=== PATIENT | male | born 1945 | race Caucasian/White ===

== ENCOUNTER 2017-11-06 11:39 | Observation (INO) ==
[2017-11-06] MEDS ORDERED: Aspirin 325 MG Tablet PO ONE (11:51)
[2017-11-06 12:03] LABS: Baso % (Auto) 0.5 % (0.0-2.0); Eos # (Auto) 0.3 th/mm3 (0.0-0.4); Eos % (Auto) 3.3 % (0.0-4.0); Hematocrit 41.4 % (39.0-51.0); Lymph # (Auto) 1.7 th/mm3 (1.0-4.8); Lymph % (Auto) 22.9 % (9.0-44.0); Mean Corpuscular HGB Conc 33.8 % (32.0-36.0); Mean Corpuscular Hemoglobin 32.3 pg (27.0-34.0); Mean Corpuscular Volume 95.4 fL (80.0-100.0); Mean Platelet Volume 8.7 fL (7.0-11.0); Mono # (Auto) 0.7 th/mm3 (0.0-0.9); Mono % (Auto) 9.6 % (0.0-8.0); Neut # (Auto) 4.8 th/mm3 (1.8-7.7); Neut % (Auto) 63.7 % (16.0-70.0); Platelet Count 143 th/mm3 (150-450); Red Blood Count 4.34 mil/mm3 (4.50-5.90); Red Cell Distribution Width 12.4 % (11.6-17.2); White Blood Count 7.6 th/mm3 (4.0-11.0)
[2017-11-06 12:11] LABS: Activated Partial Thrombo Time 24.3 sec (24.3-30.1); INR 1.1 Ratio
--- NOTE | 2017-11-06 12:21 | ED ---
HPI General Chief Complaint: Chest Pain Stated Complaint: Chest Pain Time Seen by Provider: 11/06/17 11:49 Source: patient Mode of arrival: EMS Limitations: no limitations History of Present Illness HPI narrative: 72-year-old male the presents to the ED via [facility] from the [place] for evaluation of chest pain. Per patient she developed chest pain will filling out paperwork at the [place]. Per patient he follows with the [facility] for his medical care. Per patient he has significant history of heart disease. Per patient he took 2 nitroglycerin of his own which seemed to improve his pain. Patient was given a third one when the back showed up which improved all of his symptoms. Patient was given aspirin as patient states that he takes blood thinner. Patient states that currently he is completely asymptomatic. Discomfort started 40 minutes before coming. Patient completely symptomatic at this time. He does have a history of diabetes, high blood pressure, high cholesterol. History of quadruple bypass and stent placed in 2006. Patient follows with cardiology in the [place] and per patient gets a stress test almost a year but has not had one this year. Per patient last time he had something like this was about 5 years ago he took his nitro and everything went away. She denies anything extraneous to come the pain. He denies any recent travel. He cannot really tell what blood thinner he takes. Denies any shortness of breath. No headache. No blurred vision. No syncope like symptoms. No nausea or vomiting. No abdominal pain. Complete Quality Measures for STEMI Alert Patients Related Data Home Medications Medication Instructions Recorded Confirmed amlodipine 5 mg PO DAILY 11/06/17 11/06/17 aspirin [Aspir-81] 81 mg PO DAILY 11/06/17 11/06/17 cholecalciferol (vitamin D3) 1,000 unit PO DAILY 11/06/17 11/06/17 clopidogrel 75 mg PO DAILY 11/06/17 11/06/17 fluoxetine 20 mg PO DAILY 11/06/17 11/06/17 insulin aspart (niacinamide) 30 unit SUB-Q TID 11/06/17 11/06/17 insulin glargine 55 unit SUB-Q HS 11/06/17 11/06/17 isosorbide mononitrate 30 mg PO DAILY 11/06/17 11/06/17 meclizine 12.5 mg PO BID 11/06/17 11/06/17 metoprolol tartrate 25 mg PO BID 11/06/17 11/06/17 quetiapine 25 mg PO BID 11/06/17 11/06/17 ranolazine 1,000 mg PO Q12H 11/06/17 11/06/17 rosuvastatin 40 mg PO DAILY 11/06/17 11/06/17 Allergies Allergy/AdvReac Type Severity Reaction Status Date / Time No Known Allergies Allergy Verified 11/06/17 11:52 Review of Systems ROS: all other systems reviewed are negative PENDING SALE TO [facility] Medical History Medical History Atrial fibrillation (Acute) Depression (Acute) Diabetes (Acute) High cholesterol (Acute) Hypertension (Acute) Myocardial infarction (Acute) Surgical History Surgical History History of cardiac cath (Acute) Hx of CABG (Acute) Status post carotid surgery (Acute) Social History Social History Substance History: No History of Abuse Second Hand Smoke Exposure: No Smoking Status: Former smoker How Often Do You Have a Drink Containing Alcohol: Monthly or less Recent Travel in [facility] within the Last 8 Weeks: No Recent Out of Country Travel within the Last 8 Weeks: No Immunization History Tetanus Immunization: <5 Years Hx Influenza Vaccine This Season: No Exam Narrative Exam Narrative: GENERAL: Well appearing SKIN: Focused skin assessment warm/dry. HEAD: Atraumatic. Normocephalic. EYES: Pupils equal and round. No scleral icterus. No injection or drainage. ENT: No nasal bleeding or discharge. Mucous membranes pink and moist. Tongue is midline. No uvula deviation. NECK: Trachea midline. No JVD. CARDIOVASCULAR: Regular rate and rhythm. No murmur appreciated. RESPIRATORY: No accessory muscle use. Clear to auscultation. Breath sounds equal bilaterally. GASTROINTESTINAL: Abdomen soft, non-tender, nondistended. Hepatic and splenic margins not palpable. MUSCULOSKELETAL: No obvious deformities. No clubbing. No cyanosis. No edema. Full range of motion of the upper and lower extremities bilaterally. 2+ pulses bilaterally. NEUROLOGICAL: Awake and alert. No obvious cranial nerve deficits. Motor grossly within normal limits. Normal speech. PSYCHIATRIC: Appropriate mood and affect; insight and judgment normal. Course Initial Documented Vital Signs Temperature 98.4 F 11/06/17 11:45 Pulse Rate 54 L 11/06/17 11:45 Respiratory Rate 17 11/06/17 11:45 Blood Pressure 159/78 H 11/06/17 11:45 Pulse Oximetry 95 11/06/17 11:45 Last Documented Vital Signs Temperature 98.4 F 11/06/17 11:45 Pulse Rate 54 L 11/06/17 11:45 Respiratory Rate 17 11/06/17 11:45 Blood Pressure 159/78 H 11/06/17 11:45 Pulse Oximetry 96 11/06/17 12:00 Medical Decision Making MDM Narrative Medical decision making narrative: 72-year-old male who presents to the ED for evaluation of chest pain. Patient was properly examined and was found to have signs and symptoms consistent with appears to be chest pain. Concerning for ACS. Labs and imaging order. Aspirin given. Labs and imaging did not show any sign of acute disease other than slightly elevated BS. Because the patient's history and normal stress test on anytime this year do recommend admission to chest pain center for further evaluation at this deafly concerning for cardiac as he does have multiple risk factors including cardiac disease in himself. This was discussed with my attending Dr. Herrera who is in agreement with admission plan. Patient will be admitted to the chest pain center by me. Patient and family agree with admission plan. Medical Screen Exam Complete: Yes Emergency Medical Condition: Yes Differential Diagnosis Differential Diagnosis: Chest pain versus atypical chest pain versus ACS versus N-STEMI Medical Records Medical records reviewed: Yes I reviewed the patient's medical records. Lab Data Lab results reviewed: Yes I reviewed the patient's lab results. Lab results narrative: Troponin and CKMB negative Result diagrams: 11/06/17 11:50 11/06/17 11:50 Lab Results 11/06/17 11/06/17 11/06/17 Range/Units 11:50 11:50 11:50 WBC 7.6 (4.0-11.0) th/mm3 RBC 4.34 L (4.50-5.90) mil/mm3 Hgb 14.0 (13.0-17.0) gm/dL Hct 41.4 (39.0-51.0) % MCV 95.4 (80.0-100.0) fL MCH 32.3 (27.0-34.0) pg MCHC 33.8 (32.0-36.0) % RDW 12.4 (11.6-17.2) % Plt Count 143 L (150-450) th/mm3 MPV 8.7 (7.0-11.0) fL Neut % (Auto) 63.7 (16.0-70.0) % Lymph % (Auto) 22.9 (9.0-44.0) % Rogers % (Auto) 9.6 H (0.0-8.0) % Eos % (Auto) 3.3 (0.0-4.0) % Baso % (Auto) 0.5 (0.0-2.0) % Neut # (Auto) 4.8 (1.8-7.7) th/mm3 Lymph # (Auto) 1.7 (1.0-4.8) th/mm3 Rogers # (Auto) 0.7 (0.0-0.9) th/mm3 Eos # (Auto) 0.3 (0.0-0.4) th/mm3 Baso # (Auto) 0.0 (0.0-0.2) th/mm3 WBC Differential . Differential Comment Auto diff final PT 11.0 (9.8-11.6) sec INR 1.1 Ratio APTT 24.3 (24.3-30.1) sec Sodium 137 (136-145) meq/L Potassium 4.4 (3.5-5.1) meq/L Chloride 101 (98-107) meq/L Carbon Dioxide 27.8 (21.0-32.0) meq/L Anion Gap 8 (5-15) meq/L BUN 25 H (7-18) mg/dL Creatinine 1.70 H (0.60-1.30) mg/dL Estimated GFR 40 L (>89) mL/min Random Glucose 327 H (74-106) mg/dL Calcium 8.4 L (8.5-10.1) mg/dL Total Bilirubin 0.3 (0.2-1.0) mg/dL AST 15 (15-37) U/L ALT 31 (12-78) U/L Alkaline Phosphatase 66 (45-117) U/L Total Creatine Kinase 67 (39-308) U/L Troponin I Less than 0.02 L (0.02-0.05) ng/mL B-Natriuretic Peptide (0-100) pg/mL Total Protein 6.8 (6.4-8.2) g/dL Albumin 3.2 L (3.4-5.0) g/dL Lipase 117 (73-393) U/L 11/06/17 Range/Units 11:50 WBC (4.0-11.0) th/mm3 RBC (4.50-5.90) mil/mm3 Hgb (13.0-17.0) gm/dL Hct (39.0-51.0) % MCV (80.0-100.0) fL MCH (27.0-34.0) pg MCHC (32.0-36.0) % RDW (11.6-17.2) % Plt Count (150-450) th/mm3 MPV (7.0-11.0) fL Neut % (Auto) (16.0-70.0) % Lymph % (Auto) (9.0-44.0) % Rogers % (Auto) (0.0-8.0) % Eos % (Auto) (0.0-4.0) % Baso % (Auto) (0.0-2.0) % Neut # (Auto) (1.8-7.7) th/mm3 Lymph # (Auto) (1.0-4.8) th/mm3 Rogers # (Auto) (0.0-0.9) th/mm3 Eos # (Auto) (0.0-0.4) th/mm3 Baso # (Auto) (0.0-0.2) th/mm3 WBC Differential Differential Comment PT (9.8-11.6) sec INR Ratio APTT (24.3-30.1) sec Sodium (136-145) meq/L Potassium (3.5-5.1) meq/L Chloride (98-107) meq/L Carbon Dioxide (21.0-32.0) meq/L Anion Gap (5-15) meq/L BUN (7-18) mg/dL Creatinine (0.60-1.30) mg/dL Estimated GFR (>89) mL/min Random Glucose (74-106) mg/dL Calcium (8.5-10.1) mg/dL Total Bilirubin (0.2-1.0) mg/dL AST (15-37) U/L ALT (12-78) U/L Alkaline Phosphatase (45-117) U/L Total Creatine Kinase (39-308) U/L Troponin I (0.02-0.05) ng/mL B-Natriuretic Peptide 67 (0-100) pg/mL Total Protein (6.4-8.2) g/dL Albumin (3.4-5.0) g/dL Lipase (73-393) U/L Imaging Data Radiologist's impression: Chest X-Ray 11/06/17 11:50 CONCLUSION: No acute pulmonary infiltrates. ECG Data Attestation: I personally reviewed and interpreted this ECG as follows: Interpretation: EKG shows sinus bradycardia what appears to be RBBB. No sign of acute ischemia. Ventricular rate of 54, VT interval of 200 ms. Discharge Plan Discharge Disposition Patient Disposition: 30 Still Patient Discharge Details Diagnosis: Chest pain Physicians Team ED Provider: Clay Herrera ED Midlevel Provider: Jared Vogt Primary Care Provider: UNKNOWN, Rxs /Orders / Referrals /Forms Prescriptions: No Action insulin glargine 100 unit/mL Solution 55 unit SUB-Q HS RF: 0 isosorbide mononitrate 30 mg Tablet Extended Release 24 Hr 30 mg PO DAILY RF: 0 meclizine 12.5 mg Tablet 12.5 mg PO BID RF: 0 clopidogrel 75 mg Tablet 75 mg PO DAILY RF: 0 amlodipine 5 mg Tablet 5 mg PO DAILY RF: 0 aspirin [Aspir-81] 81 mg Tablet,Delayed Release (Dr/Ec) 81 mg PO DAILY RF: 0 metoprolol tartrate 50 mg Tablet 25 mg PO BID RF: 0 fluoxetine 20 mg Capsule 20 mg PO DAILY RF: 0 rosuvastatin 40 mg Tablet 40 mg PO DAILY RF: 0 quetiapine 50 mg Tablet 25 mg PO BID RF: 0 cholecalciferol (vitamin D3) 1,000 unit Tablet 1,000 unit PO DAILY RF: 0 ranolazine 1,000 mg Tablet Extended Release 12 Hr 1,000 mg PO Q12H RF: 0 insulin aspart (niacinamide) 100 unit/mL Solution 30 unit SUB-Q TID RF: 0 Discharge Instructions Patient Printed Instructions: Chest Pain (ED) Status ED Status: With Doctor
[2017-11-06 12:27] LABS: Alanine Aminotransferase 31 U/L (12-78); Albumin 3.2 g/dL (3.4-5.0); Anion Gap 8 meq/L (5-15); Aspartate Aminotransferase 15 U/L (15-37); Blood Urea Nitrogen 25 mg/dL (7-18); Calcium 8.4 mg/dL (8.5-10.1); Carbon Dioxide 27.8 meq/L (21.0-32.0); Chloride 101 meq/L (98-107); Glomerular Filtration Rate 40 mL/min (>89); Glucose,Random 327 mg/dL (74-106); Lipase 117 U/L (73-393); Potassium 4.4 meq/L (3.5-5.1); Sodium 137 meq/L (136-145)
[2017-11-06 12:31] LABS: Alkaline Phosphatase 66 U/L (45-117); Total Protein 6.8 g/dL (6.4-8.2)
[2017-11-06 12:32] LABS: Creatine Kinase 67 U/L (39-308)
--- NOTE | 2017-11-06 13:13 | XR ---
EXAM DATE: 11/06/2017 12:51 PM EDT AGE/SEX: 72 years / Male INDICATIONS: Chest pain. CLINICAL DATA: This is the patient's initial encounter. Patient reports that signs and symptoms have been present for 1 day and indicates a pain score of 6/10. MEDICAL/SURGICAL HISTORY: Myocardial infarction. CABG. COMPARISON: No prior exams available for comparison. FINDINGS: A single AP view of the chest demonstrates the lungs to be symmetrically aerated without evidence of mass, infiltrate or effusion. The heart size is upper limits of normal. There is evidence of previou s cardiothoracic surgery.. Osseous structures are intact. CONCLUSION: No acute pulmonary infiltrates. Electronically signed by: Hoang Daniels MD 11/06/2017 1:11 PM EDT
[2017-11-06] MEDS ORDERED: Acetaminophen 500 MG Tablet PO PRN (13:41)
--- NOTE | 2017-11-06 15:33 | P.HPCA ---
History of Present Illness Primary Care Physician: [facility] Chief Complaint: Chest pain History of Present Illness: 72 year old male with history of CAD, CABGx4 (1998), cardiac stent x1 (2006), type II diabetes, and hypertension presents to ER for further evaluation of nonexertional chest pain. Onset 1100. Location substernal. Characterized as "a fist inside my chest, deep inside." Radiation to right shoulder blade and mid back. 8/10 in severity. Associated symptoms include nausea and blurred vision. Denied dyspnea or diaphoresis. No precipitating factors. Took Nitro SL x1 which eased the pain somewhat, took an additional Nitro SL 5 minutes later. Pain decreased to 3/10. He and his were at the [facility] filling out paperwork, therefore notified staff of chest pain. EMS called. Reports complete relief after Nitro spray given en route by EMS within a couple of minutes. Duration one hour. Remains chest pain free, but also reports "a few ticks of intermittent pain." Denies frequently requiring use of Nitro and tablets are not . Endorses similar pain prior to previous cardiac events. Started on Imdur s/p CABG in 1998 and Ranexa in 2006. Reports Ranexa started for small vessel disease, denying chest discomfort as reason for Ranexa. No recent illness, fever, or injury. Reports frequent falls and earlier today seen neurologist. States "loosing my footing" and also becomes dizzy. Endorses difficulty controlling blood sugars for 7-8 months which he related to track manager stopping metformin and switching insulin around. Reports sugars used to be between 100-130, until recent change now reports sugars well above 200. Past cardiac testing 1998 CABGx4 2007 cardiac stent placed in "one of my bypasses." [employer] with [place] [facility]. Last seen vascular ultrasound technician April 2017. Last nuclear stress testing April 2016 reported to be normal. No recent echocardiogram. Denies personal history of congestive heart failure, however states "the right side of my heart during first MD because I waited to long to be seen." - Diagnosis (1) Chest pain of uncertain etiology (2) History of coronary artery disease (3) Type 2 diabetes mellitus (4) H/O: hypertension (5) H/O sleep apnea Review of Systems All other systems reviewed negative except as stated in HPI [facility] - History History Provided By: Patient - Medical History Medical History: Medical History (Last Updated 11/06/17 @ 15:26 by ETHEL Jarvis) CAD (coronary artery disease) Depression Diabetes High cholesterol Hypertension Myocardial infarction Sleep apnea - Surgical History Surgical History: Surgical History (Last Updated 11/06/17 @ 15:28 by ETHEL Jarvis) History of cardiac cath History of left hip replacement Hx of CABG Status post carotid surgery - Family History Family History: Family History (Last Updated 11/06/17 @ 15:50 by ETHEL Jarvis) Father FH: throat cancer Mother CHF (congestive heart failure) Hx of CABG - Tobacco History Second Hand Smoke Exposure: No Smoking Status: Former smoker - Alcohol History How Often Do You Have a Drink Containing Alcohol: Monthly or less - Substance Use History Substance History: No History of Abuse - Travel History Recent Travel in the [place] Within the Last 8 Weeks: No Recent Travel Out of the Country Within the Last 8 Weeks: No - Immunization History Tetanus Immunization: <5 Years Hx Influenza Vaccine This Season: No Medications and Allergies Active Medications: Active Medications Acetaminophen (Tylenol) 500 mg PO Q4H PRN PRN Reason: HEADACHE Nitroglycerin (Nitrostat Sl) 0.4 mg SL Q5M PRN PRN Reason: CHEST PAIN Sodium Chloride (Ns Flush) 2 ml IV.FLUSH UNSCH PRN PRN Reason: FLUSH AFTER USING IV ACCESS Sodium Chloride (Ns Flush) 2 ml IV.FLUSH BID SANDRA Allergies Allergy/AdvReac Type Severity Reaction Status Date / Time No Known Allergies Allergy Verified 11/06/17 11:52 Home Medications Medication Instructions Recorded Confirmed Type amlodipine 5 mg PO DAILY 11/06/17 11/06/17 History aspirin [Aspir-81] 81 mg PO DAILY 11/06/17 11/06/17 History cholecalciferol (vitamin D3) 1,000 unit PO DAILY 11/06/17 11/06/17 History clopidogrel 75 mg PO DAILY 11/06/17 11/06/17 History fluoxetine 20 mg PO DAILY 11/06/17 11/06/17 History insulin aspart (niacinamide) 30 unit SUB-Q TID 11/06/17 11/06/17 History insulin glargine 55 unit SUB-Q HS 11/06/17 11/06/17 History isosorbide mononitrate 30 mg PO DAILY 11/06/17 11/06/17 History meclizine 12.5 mg PO BID 11/06/17 11/06/17 History metoprolol tartrate 25 mg PO BID 11/06/17 11/06/17 History quetiapine 25 mg PO BID 11/06/17 11/06/17 History ranolazine 1,000 mg PO Q12H 11/06/17 11/06/17 History rosuvastatin 40 mg PO DAILY 11/06/17 11/06/17 History Exam Vital signs: Vital Signs 11/06/17 11:45 11/06/17 11:52 11/06/17 12:00 Temperature 98.4 F Pulse Rate 54 L Respiratory Rate 17 Blood Pressure 159/78 H Pulse Oximetry 95 95 96 11/06/17 13:41 Temperature Pulse Rate 52 L Respiratory Rate 17 Blood Pressure 151/76 H Pulse Oximetry 97 Intake & Output 11/05/17 11/06/17 11/06/17 18:59 06:59 18:59 Weight 100 kg Narrative: GENERAL: Alert WN, WD, NAD, pleasant, obese, male HEAD: NC, AT EYES: Sclera clear, conjunctiva without injection, pupils equal and round ENT: Mucous membranes pink and moist NECK: Supple, no masses, trachea midline CV: Regular bradycardic rhythm, without murmur, rub, gallop, no JVD, S1-S2 no S3 -S4. No carotid bruits. Chest wall nontender to palpation. RESP: Clear lungs throughout bilateral, no crackles, wheeze, rhonchi, symmetrical chest rise, nonlabored, able to speak in full sentences ABD: Soft, NT, ND, no masses, positive bowel tones, large, round obese abdomen EXT: Pulses +2x4, right lower extremity +2 pitting edema, left pedal/ankle +2 edema MS: Normal tone x4 extremities, nontender, no obvious deformities, full range of motion NEURO: CN II through CN XII grossly intact, motor strength 5/5 PSYCH: A+O x3, flat affect, appropriate speech, mood, insight and judgment SKIN: Normal turgor, normal texture, no lesions, no rashes, brisk cap refill, decreased lower extremity hair distribution, midline chest surgical scar, left- sided neck surgical scar Results 11/06/17 11:50 11/06/17 11:50 Cardiac Enzymes 11/06/17 11/06/17 Range/Units 11:50 11:50 AST 15 (15-37) U/L Troponin I Less than 0.02 L (0.02-0.05) ng/mL B-Natriuretic Peptide 67 (0-100) pg/mL Coagulation 11/06/17 11/06/17 Range/Units 11:50 11:50 PT 11.0 (9.8-11.6) sec APTT 24.3 (24.3-30.1) sec B-Natriuretic Peptide 67 (0-100) pg/mL CBC 11/06/17 Range/Units 11:50 WBC 7.6 (4.0-11.0) th/mm3 RBC 4.34 L (4.50-5.90) mil/mm3 Hgb 14.0 (13.0-17.0) gm/dL Hct 41.4 (39.0-51.0) % Plt Count 143 L (150-450) th/mm3 Neut # (Auto) 4.8 (1.8-7.7) th/mm3 Lymph # (Auto) 1.7 (1.0-4.8) th/mm3 Hamblen # (Auto) 0.7 (0.0-0.9) th/mm3 Eos # (Auto) 0.3 (0.0-0.4) th/mm3 Baso # (Auto) 0.0 (0.0-0.2) th/mm3 Comprehensive Metabolic Panel 11/06/17 Range/Units 11:50 Sodium 137 (136-145) meq/L Potassium 4.4 (3.5-5.1) meq/L Chloride 101 (98-107) meq/L Carbon Dioxide 27.8 (21.0-32.0) meq/L BUN 25 H (7-18) mg/dL Creatinine 1.70 H (0.60-1.30) mg/dL Calcium 8.4 L (8.5-10.1) mg/dL AST 15 (15-37) U/L ALT 31 (12-78) U/L Alkaline Phosphatase 66 (45-117) U/L Total Protein 6.8 (6.4-8.2) g/dL Albumin 3.2 L (3.4-5.0) g/dL Intake and Output 11/05/17 11/06/1718 22:59 06:59 14:59 Other: Weight 100 kg Patient Weight 11/07/17 06:59 Weight 100 kg EKG interpretations - EKG EKG results cardiology: sinus rhythm (NSB, nonspecific st t changes) Caprini VTE Risk Assessment Caprini VTE Risk Assessment: Moderate/High Risk (score >= 2) Caprini Risk Assessment Model: Point Value = 1 Point Value = 2 Point Value = 3 Point Value = 5 Age 41-60 Minor surgery BMI > 25 kg/m2 Swollen legs Varicose veins or History of unexplained or recurrent spontaneous Oral contraceptives or hormone replacement Sepsis (< 1 month) Serious lung disease, including pneumonia (< 1 month) Abnormal pulmonary function Acute myocardial infarction Congestive heart failure (< 1 month) History of inflammatory bowel disease Medical patient at bed rest Age 61-74 Arthroscopic surgery Major open surgery (> 45 min) Laparoscopic surgery (> 45 min) Malignancy Confined to bed (> 72 hours) Immobilizing plaster cast Central venous access Age >= 75 History of VTE Family history of VTE Factor V Leiden Prothrombin [id number] Lupus anticoagulant Anticardiolipin antibodies Elevated serum homocysteine Heparin-induced thrombocytopenia Other congenital or acquired thrombophilia Stroke (< 1 month) Elective arthroplasty Hip, pelvis, or leg fracture Acute spinal cord injury (< 1 month) Prophylaxis Regimen: Total Risk Factor Score Risk Level Prophylaxis Regimen 0-1 Low Early ambulation 2 Moderate Order ONE of the following: *Sequential Compression Device (SCD) *Heparin 5000 units SQ BID 3-4 Higher Order ONE of the following medications: *Heparin 5000 units SQ TID *Enoxaparin/Lovenox 40 mg SQ daily (WT < 150 kg, CrCl > 30 mL/min) *Enoxaparin/Lovenox 30 mg SQ daily (WT < 150 kg, CrCl > 10-29 mL/min) *Enoxaparin/Lovenox 30 mg SQ BID (WT < 150 kg, CrCl > 30 mL/min) AND/OR *Sequential Compression Device (SCD) 5 or more Highest Order ONE of the following medications: *Heparin 5000 units SQ TID (Preferred with Epidurals) *Enoxaparin/Lovenox 40 mg SQ daily (WT < 150 kg, CrCl > 30 mL/min) *Enoxaparin/Lovenox 30 mg SQ daily (WT < 150 kg, CrCl > 10-29 mL/min) *Enoxaparin/Lovenox 30 mg SQ BID (WT < 150 kg, CrCl > 30 mL/min) AND *Sequential Compression Device (SCD) Assessment and Plan - Assessment (1) Chest pain of uncertain etiology Code(s): R07.89 - Other chest pain Status: Acute Plan: Admitted to chest pain center. Rule out ACS with 3 sets of EKGs and cardiac enzymes. Seen and evaluated by Dr. Terrance Shearer. If ACS ruled out overnight plans to proceed with Lexiscan in a.m. Patient and agreeable to plan of care. (2) History of coronary artery disease Code(s): Z86.79 - Personal history of other diseases of the circulatory system Status: Chronic Plan: Continue aspirin, Plavix, isosorbide, metoprolol, Ranexa, and rosuvastatin. Encouraged him to discuss with his vascular ultrasound technician continuing use of Plavix, as he reports being on for 10 years. (3) Type 2 diabetes mellitus Code(s): E11.9 - Type 2 diabetes mellitus without complications Status: Chronic Plan: SSI moderate dose coverage. Discussed glucose found to be 327 on current lab work. Reinforced importance of tight blood sugar control. Encouraged discussing with track manager his concern poorly controlled sugars since insulin change and stopping metformin. (4) H/O: hypertension Code(s): Z86.79 - Personal history of other diseases of the circulatory system Status: Chronic Plan: Continue amlodipine. (5) H/O sleep apnea Code(s): Z86.69 - Personal history of other diseases of the nervous system and sense organs Status: Chronic Plan: CPAP ordered nightly. (3) Type 2 diabetes mellitus Qualifiers: Diabetes mellitus missile inspector preflight insulin use: unspecified missile inspector preflight insulin use status Diabetes mellitus complication status: with unspecified complications Qualified Code(s): E11.8 - Type 2 diabetes mellitus with unspecified complications
[2017-11-06] MEDS ORDERED: Dextrose 50% in Water 50 ML Vial IV.PUSH PRN (15:45)
--- NOTE | 2017-11-06 16:33 | ECG ---
Date Performed: 11/06/2017 Time Performed: 11:47:48 PTAGE: 72 years EKG: SINUS BRADYCARDIA RIGHT BUNDLE BRANCH BLOCK Nonspecific T wave changes. ABNORMAL ECG NO PREVIOUS TRACING DOCTOR: Terrance Shearer Interpretating Date/Time 11/06/2017 16:33:05
[2017-11-06 16:52] LABS: Creatine Kinase 64 U/L (39-308)
[2017-11-06] MEDS ORDERED: INSULIN ASPART 30 UNIT SQ SCH (18:00)
[2017-11-06] MEDS: Insulin NovoLOG Aspart Correctional Sugar Inj SQ SCH ×2 (18:49→21:11)
[2017-11-06 19:06] LABS: Creatine Kinase 63 U/L (39-308)
[2017-11-06] MEDS: Metoprolol Tartrate 25 MG Tablet PO SCH (21:11)
[2017-11-06] MEDS: Ranolazine 500 MG 12HR ER Tablet PO SCH (22:16)
[2017-11-07 07:41] VITALS: RESP 18
[2017-11-07] MEDS ORDERED: Isosorbide Mononitrate 30 MG ER 24HR Tablet (Imdur) PO SCH (09:00)
[2017-11-07] MEDS ORDERED: amLODIPine 5 MG Tablet PO SCH (09:00)
[2017-11-07] MEDS ORDERED: FLUoxetine 20 MG Capsule PO SCH (09:00)
[2017-11-07] MEDS: Insulin NovoLOG Aspart Correctional Sugar Inj SQ SCH ×2 (09:21→11:35)
[2017-11-07] MEDS ORDERED: Regadenoson Inj 0.4 MG/5 ML Syringe IV.PUSH ONE (09:41)
--- NOTE | 2017-11-07 10:42 | TR ---
Date Performed: 11/07/2017 Time Performed: 09:24:29 DOCTOR: Raj Lockhart DRUG LIST: CLINICAL HISTORY: REASON FOR TEST: REASON FOR ENDING: OBSERVATION: CONCLUSION: COMMENTS: Lexiscan stress test was performed under standard four minute protocol. Radionuclide was injected one minute prior to ending the test. No electrocardiographic abormalities were present t o suggest ischemia. Nuclear imaging and interpretation are pending.
--- NOTE | 2017-11-07 11:09 | NM ---
EXAM DATE: 11/07/2017 11:01 AM EDT AGE/SEX: 72 years / Male INDICATIONS:Angina. Myocardial infarction Substernal chest pain radiating to right shoulder and back with nausea and blurred vision. CLINICAL DATA: This is the patient's initial encounter. Patient reports that signs and symptoms have been present for 1 day and indicates a pain score of 7/10. MEDICAL/SURGICAL HISTORY: Diabetes mellitus type II. Hypertension. Hypercholesterolemia. CABG . Coronary artery stent. Left hip replacement. COMPARISON: No prior exams available for comparison. DOSE: 11.0 mCi Tc 99m Myoview at rest 35.00 mCi [id number] at stress 0.4 mg Lexiscan STRESS SYMPTOMS: Shortness of breath. EJECTION FRACTION: 42 % TECHNIQUE: The patient underwent pharmacologic stress with infusion of prescribed dose. Continuous ECG tracing was monitored during stress. Gated SPECT imaging was performed after stress and conventi onal SPECT imaging was performed at rest. The examination was performed on a SPECT/CT scanner, both attenuation and non-corrected datasets were reviewed. FINDINGS: The best perfused myocardium is the anterior lateral wall followed by the septum and inferior wall. T here is a fixed defect in the anterior apical segment. There is no redistribution to suggest stress-induced ischemia. Gated Study: The ejection fraction is calculated at 42% with apical hypokinesis.. RISK CATEGORY: Intermediate (1-3 % Annual Mortality Rate) CONCLUSION: 1. Negative for stress-induced ischemia 2. Hypokinetic/akinetic apical segment of the 42% ejection fraction. Electronically signed by: Jv Redd MD 11/07/2017 11:07 AM EDT
[2017-11-07] MEDS: Ranolazine 500 MG 12HR ER Tablet PO SCH (11:27)
[2017-11-07] MEDS: Metoprolol Tartrate 25 MG Tablet PO SCH (11:28)
[2017-11-07 11:43] VITALS: BP 153/80; PULSE 63; TEMP 98.6; O2SAT 97
--- NOTE | 2017-11-07 13:53 | ECG ---
Date Performed: 11/06/2017 Time Performed: 15:04:59 PTAGE: 72 years EKG: SINUS BRADYCARDIA RIGHT BUNDLE BRANCH BLOCK ABNORMAL ECG PREVIOUS TRACING : 11/06/2017 11.47 Since previous tracing, no significant change noted DOCTOR: Raj Lockhart Interpretating Date/Time 11/07/2017 13:52:09
--- NOTE | 2017-11-07 13:53 | ECG ---
Date Performed: 11/06/2017 Time Performed: 18:09:09 PTAGE: 72 years EKG: SINUS BRADYCARDIA BORDERLINE LEFT AXIS DEVIATION RIGHT BUNDLE BRANCH BLOCK ABNORMAL ECG PREVIOUS TRACING : 11/06/2017 15.04 Since previous tracing, no significant change noted DOCTOR: Raj Lockhart Interpretating Date/Time 11/07/2017 13:51:50
== END 2017-11-07 13:10 | disposition home or self-care (01) ==
LOC: NEPE 11:39 → NEDA 11:39 → NEPFCDU 14:56
PROVIDERS: ADMIT Internal Medicine Cardiovascular Disease; ATTEND Internal Medicine Cardiovascular Disease